=== PATIENT | female | born 2000 | race African-American/Black ===

== ENCOUNTER 2020-12-06 12:17 | Emergency (ER) | payer MEDICAID ==
[~2020-12-06] VITALS: Ht 157.5 cm; Wt 113.0 kg
[2020-12-06] MEDS ORDERED: ACETAMINOPHEN 325MG TABLET PO STA (12:31)
[2020-12-06] MEDS ORDERED: KETOROLAC 60MG/2ML VIAL IM STA (12:31)
[2020-12-06] MEDS ORDERED: IBUP-2028 MT (13:31)
[2020-12-06 14:20] VITALS: BP 145/80
== END 2020-12-06 14:24 | disposition home or self-care (01) ==
LOC: ER 12:29
DX: S83.8X1A Sprain of other specified parts of right knee, initial encounter (principal); R03.0 Elevated blood-pressure reading, without diagnosis of hypertension; Y93.67 Activity, basketball; Y92.89 Other specified places as the place of occurrence of the external cause
CPT/HCPCS: 29505; 73562; 81025; 96372; 99283; J1885; Z7610